=== PATIENT | male | born 1990 | race Asian ===

== ENCOUNTER 2017-01-13 15:23 | Outpatient (CLI) | payer BC ==
[2017-01-13 16:13] LABS: BASOPHILS % (AUTO) 0.7 % (0.0-2.0); DIFF TOTAL % 100 %; EOSINOPHILS # (AUTO) 0.1 /CMM (0.0-0.7); EOSINOPHILS % (AUTO) 1.3 % (0.0-6.0); HEMATOCRIT 47 % (39-51); HEMOGLOBIN 15.5 g/dL (13.5-17.5); LYMPHOCYTES # (AUTO) 1.3 /CMM (0.8-4.8); LYMPHOCYTES % (AUTO) 28.7 % (20.0-44.0); MEAN CORPUSCULAR HEMOGLOBIN 29 PG (26.0-33.0); MEAN CORPUSCULAR HGB CONC 33 g/dl (31.0-36.0); MEAN CORPUSCULAR VOLUME 88 fL (80-96); MONOCYTES # (AUTO) 0.4 /CMM (0.1-1.30); NEUTROPHILS # (AUTO) 2.8 /CMM (1.8-8.9); NEUTROPHILS % (AUTO) 60.3 % (43.0-81.0); PLATELET COUNT (AUTO) 231 /CMM (150-450); RED BLOOD CELL COUNT(AUTO) 5.37 MIL/uL (4.5-6.0); WHITE BLOOD COUNT (AUTO) 4.6 K/uL (4.3-11.0)
[2017-01-13 16:29] LABS: ALBUMIN 4.2 g/dL (3.4-5.0); BILIRUBIN,TOTAL 0.4 mg/dL (0.2-1.0); CALCIUM, SERUM 9.1 mg/dL (8.5-10.1); CREATININE 1.1 mg/dL (0.6-1.3); POTASSIUM 4.4 mmol/L (3.5-5.1)
[2017-01-13 18:00] LABS: KETONES,URINE NEGATIVE (NEGATIVE); LEUKOCYTE ESTERASE ,URINE NEGATIVE (NEGATIVE); PH,URINE 7.5 (5.0-8.0)
[2017-01-13 18:03] LABS: ADD UA MICROSCOPIC YES
[2017-01-13 18:10] LABS: ADD URINE CULTURE NO; WBC,URINE 0-2 /HPF (0-3)
== END 2017-01-13 23:59 | disposition home or self-care (01) ==
LOC: LAB 15:23
PROVIDERS: ATTEND Family Medicine
DX: N39.0 Urinary tract infection, site not specified (principal); R31.9 Hematuria, unspecified
CPT/HCPCS: 36415; 80053-TC; 81000-TC; 85025-TC; 87086-TC

== ENCOUNTER 2017-01-15 09:14 | Outpatient (CLI) | payer BC ==
[2017-01-15] MEDS ORDERED: IOHEXOL-300 100 ML VIAL IV ONE (09:37)
[2017-01-15] MEDS ORDERED: CT SWABBABLE VALVE TRANS SET 1 EA INFUS.SET MC ONE (09:37)
[2017-01-15] MEDS ORDERED: IV NS 0.9% 250 ML IV ONE (09:37)
== END 2017-01-15 23:59 | disposition home or self-care (01) ==
LOC: CT 09:14
PROVIDERS: ATTEND Family Medicine
DX: R31.9 Hematuria, unspecified (principal); K42.9 Umbilical hernia without obstruction or gangrene
CPT/HCPCS: 74160; J7050; Q9967

== ENCOUNTER 2017-04-24 09:20 | Outpatient (CLI) | payer BC ==
[2017-04-24 09:59] LABS: BASOPHILS % (AUTO) 0.6 % (0.0-2.0); EOSINOPHILS # (AUTO) 0.1 /CMM (0.0-0.7); EOSINOPHILS % (AUTO) 2.1 % (0.0-6.0); HEMATOCRIT 46 % (39-51); HEMOGLOBIN 15.4 g/dL (13.5-17.5); LYMPHOCYTES # (AUTO) 1.8 /CMM (0.8-4.8); LYMPHOCYTES % (AUTO) 34.8 % (20.0-44.0); MEAN CORPUSCULAR HEMOGLOBIN 30 PG (26.0-33.0); MEAN CORPUSCULAR HGB CONC 33 g/dl (31.0-36.0); MEAN CORPUSCULAR VOLUME 89 fL (80-96); MONOCYTES # (AUTO) 0.4 /CMM (0.1-1.30); MONOCYTES % (AUTO) 7.3 % (2.0-12.0); NEUTROPHILS # (AUTO) 2.8 /CMM (1.8-8.9); NEUTROPHILS % (AUTO) 55.2 % (43.0-81.0); PLATELET COUNT (AUTO) 204 /CMM (150-450); RDW COEFFICIENT OF VARIATION 14.3 (11.5-15.0); RED BLOOD CELL COUNT(AUTO) 5.18 MIL/uL (4.5-6.0); WHITE BLOOD COUNT (AUTO) 5.2 K/uL (4.3-11.0)
[2017-04-24 10:11] LABS: ALBUMIN 4.2 g/dL (3.4-5.0); BILIRUBIN,TOTAL 0.6 mg/dL (0.2-1.0); CALCIUM, SERUM 8.9 mg/dL (8.5-10.1); CREATININE 0.9 mg/dL (0.6-1.3); POTASSIUM 3.9 mmol/L (3.5-5.1); TOTAL PROTEIN, SERUM 7.7 g/dL (6.4-8.2)
[2017-04-24 10:18] LABS: THYROID STIMULATING HORMONE 2.276 uIU/mL (0.358-3.74)
== END 2017-04-24 23:59 | disposition home or self-care (01) ==
LOC: LAB 09:20
PROVIDERS: ATTEND Family Medicine
DX: Z00.00 Encounter for general adult medical examination without abnormal findings (principal); G47.00 Insomnia, unspecified
CPT/HCPCS: 36415; 80053-TC; 80061-TC; 84146; 84439-TC; 84443-TC; 85025-TC

== ENCOUNTER 2017-06-10 08:25 | Outpatient (CLI) | payer BC ==
[2017-06-10] MEDS ORDERED: GADOVERSETAMIDE 5 MMOL/10 ML VIAL IJ ONE (08:26)
== END 2017-06-10 23:59 | disposition home or self-care (01) ==
LOC: MRI 08:25
PROVIDERS: ATTEND Family Medicine
DX: R94.7 Abnormal results of other endocrine function studies (principal)
CPT/HCPCS: 70553; A9579

== ENCOUNTER 2017-06-22 15:34 | Outpatient (CLI) | payer BC | END 2017-06-22 23:59 | disposition home or self-care (01) | LOC: LAB 15:34 | PROVIDERS: ATTEND Family Medicine | DX: R94.5 Abnormal results of liver function studies (principal) | CPT/HCPCS: 36415; 86706; 86709-TC; 86803; 87340 ==

== ENCOUNTER 2017-07-13 08:21 | Outpatient (CLI) | payer BC | END 2017-07-13 23:59 | disposition home or self-care (01) | LOC: MRI 08:21 | PROVIDERS: ATTEND Family Medicine | DX: E22.1 Hyperprolactinemia (principal); R94.7 Abnormal results of other endocrine function studies | CPT/HCPCS: 70553-TC ==

== ENCOUNTER 2017-10-03 12:20 | Emergency (ER) | payer BC, OTHER ==
[~2017-10-03] VITALS: Ht 175.3 cm; Wt 77.1 kg
[2017-10-03 12:24] VITALS: BP 134/79
[2017-10-03] MEDS ORDERED: ACETAMINOPHEN ES 500 MG TABLET ONE (13:17)
[2017-10-03] MEDS ORDERED: ACETAMINOPHEN 325 MG TABLET PO ONE (13:30)
== END 2017-10-03 13:31 | disposition home or self-care (01) ==
LOC: ER 12:21
DX: J06.9 Acute upper respiratory infection, unspecified (principal)
CPT/HCPCS: 99283; A4606; Z7610

== ENCOUNTER 2017-10-05 19:26 | Emergency (ER) | payer BC ==
[~2017-10-05] VITALS: Ht 175.3 cm; Wt 77.1 kg
--- NOTE | 2017-10-05 19:30 | NUR ---
PATIENT TO ED COUGH AND CONGESTION SINCE THURSDAY. PATIENT IS AAO4,. APPEARS IN NO APPARENT DISTRESS;RESPIRATION EVEN AND UNLABORED. SKIN IS WARM TO TOUCH AND NON DIAPHORETIC. VSS
[2017-10-05] MEDS ORDERED: LEVOFLOXACIN (750 MG) 750 MG TABLET PO STA (20:07)
[2017-10-05] MEDS ORDERED: IBUPROFEN 600 MG TABLET PO ONE ×2 (20:17→20:30)
[2017-10-05] MEDS ORDERED: ACETAMINOPHEN 325 MG TABLET ONE (20:17)
[2017-10-05] MEDS ORDERED: LEVOFLOXACIN (750 MG) 750 MG TABLET ONE (20:17)
--- NOTE | 2017-10-05 20:20 | NUR ---
PT MEDICATED ORDERED.
[2017-10-05] MEDS ORDERED: ACETAMINOPHEN 650 MG/20.3 ML UDC PO ONE (20:30)
[2017-10-05 20:45] VITALS: BP 130/80
--- NOTE | 2017-10-05 20:46 | NUR ---
Patient discharged to home in stable condition. Written and verbal after care instructions given. Patient verbalizes understanding of instruction.
== END 2017-10-05 21:03 | disposition home or self-care (01) ==
LOC: ER 19:30
DX: J18.9 Pneumonia, unspecified organism (principal); F41.9 Anxiety disorder, unspecified
CPT/HCPCS: 99284; A4606; Z7610

== ENCOUNTER 2018-02-04 05:18 | Outpatient (CLI) | payer BC ==
[2018-02-05 11:09] LABS: *TESTOSTERONE, SERUM 272 ng/dL (264-916); PROLACTIN 5.7 ng/mL (4.0-15.2)
[2018-02-05 15:10] LABS: ACTH, PLASMA 10.5 pg/mL (7.2-63.3)
== END 2018-02-04 23:59 | disposition home or self-care (01) ==
LOC: LAB 05:18
DX: D35.2 Benign neoplasm of pituitary gland (principal)
CPT/HCPCS: 36415; 82024; 82533; 84146; 84403